=== PATIENT | male | born 1940 | race Caucasian/White ===

== ENCOUNTER 2019-09-24 07:46 | Inpatient (IN) | payer MEDICARE ==
[2019-09-24] MEDS ORDERED: PROPOFOL 1,000 MG/100 ML INFUS..BTL IV PRN ×2 (08:04→08:12)
--- NOTE | 2019-09-24 08:04 | ER Document Report ---
Entered by ANTONINA SHAW SCRIBE 09/24/19 0747 Acting as scribe for:BREEZY GUTIERREZ MD ED Neuro Symptoms/Deficit - General Stated Complaint: UNRESPONSIVE Mode of Arrival: Medic Information source: Emergency Med Personnel Cannot obtain history due to: Intubated Notes: This 79 year old male patient visiting this area on vacation presents today intubated in the field by EMS. EMS reports that the patient woke up at 1:00 AM this morning and vomited but then went back to sleep. He woke up again at 5:00 AM with left sided weakness, left sided facial droop, and slurred speech. Patient had an initial systolic pressure over 200. Patient takes medication for type II diabetes, dementia, and BPH. He has no history of hypertension. 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 HEAD: Atraumatic, normocephalic. EYES: Pupils are small and sluggishly reactive. ENT: nares patent. NECK: Patient has a hard cervical collar on. LUNGS: Breath sounds show some rhonchi with bagging via endotracheal tube. HEART: Regular rate and rhythm without murmurs ABDOMEN: Soft, obese. No guarding, no rebound. No masses appreciated. EXTREMITIES: No pitting or edema. No cyanosis. There is an IO in the right anterior tibial surface. NEUROLOGICAL: The patient is obtunded. There is no spontaneous movement noted on the left side. Stroking the bottom of the feet because the large toes to go upward, with brisk jerking and withdrawal on the right, and minimal movement on the left. PSYCH: Obtunded SKIN: Warm, Dry, normal turgor, no rashes or lesions noted. Course - Re-evaluation Re-evalutation: 09/24/19 10:35 CT scan of the head showed massive right intracerebral bleed with midline shift, extension into the ventricles including third and fourth ventricle and basilar cisterns. Considerable edema. The patient was placed on a propofol drip to treat his elevated blood pressure and for sedation. Phone call was made to [facility] for consultation with neurology or neurosurgery just for confirmation that this is not a survivable injury and that intervention would not be appropriate. While waiting for the return call, I did discuss the case with the hospitalist service here, the head charrer here, and with the family. The understands the severity of the brain injury, and agrees with the de cision to extubate the patient and provide comfort care. She was present during the extubation. Long after the patient was extubated, I did get a call back from the [place] for the neurosurgeon emission specialist, he had reviewed the films and agreed that there was no intervention to provide and that this was a nonsurvivable injury. 09/24/19 16:09 I was called in to see the patient about 1525. His monitor had gone flatline and he was apneic. Reevaluation showed the patient was in fact apneic, pupils were dilating, and the monitor was flatline. He was pronounced at 1530. - Laboratory Result Diagrams: 09/24/19 06:50 09/24/19 06:50 - Diagnostic Test Radiology reviewed: Reports reviewed - CT scan of the head shows a large right- sided cerebral hemorrhage. The primary bleed measures 7.6 x 5.0 cm. Most likely represents a hypertensive hemorrhagic stroke. Cortical sulci are effaced bilaterally, consistent with diffuse bilateral edema. Basilar cisterns are effaced. There is blood in the third and fourth ventricles. - EKG Interpretation by Me EKG shows normal: Sinus rhythm, [place], Intervals, QRS Complexes. abnormal: ST-T Waves - Borderline TM abnormalities in the inferior leads Rate: Normal - 64 Rhythm: NSR When compared to previous EKG there are: Previous EKG unavailable - Consults Dr. Ramirez Time consulted: 08:37 Consulted provider: will come to ER - Medical floor. comfort care. Critical Care Note - Critical Care Note Total time excluding time spent on procedures (mins): 40 Comments: At least 40 minutes spent evaluating the patient, discussing the case with the hospitalist, the head charrer, the radiologist, and the neurosurgical group in [facility]. Time was spent talking with the family about the severity and likely progression and prognosis of this catastrophic injury. With the family present, the patient was extubated and transferred to comfort care. ED [employer]/Exc Criteria - Inclusion Criteria: 1: Patient presented to ED within 3 hours of acute ischemic stroke symptom onset? -: No - Became symptomatic at 1 AM, woke up at 5 AM with profound left-sided defici 2: Did baseline CT exclude intracranial hemorrhage and/or other risk factors? -: No 3: Is the age of the patient 18 years of age or greater? : If any of the above questions are answered "NO" then stop, patient is not a candidate for Alteplase, : If all of the above questions are answered "YES" then continue with Exclusion Criteria. - Exclusion Criteria: 1: Is there evidence of intracranial hemorrhage on baseline CT? 2: Is there suspicion of subarachnoid hemorrhage (even if CT negative)? 3: Is there a history of serious head trauma, recent previous stroke or AZ within 3 months? 4: Does the patient have a clinical presentation consistent with AZ or post-AZ pericarditis? 5: Is there history of intracranial hemorrhage? 6: On repeated measurement is Systolic BP greater than 185mmHg or Diastolic BP greater that 110 mmHg and is aggressive treatment needed to reduce blood pressure to these limits (e.g. constant infusion of an anti-hypertensive)? 7: Did the patient awake with stroke symptoms? 8: Has the patient had a lumbar puncture or an arterial puncture at a non- compressile site within 7 days? 9: With in the last 14 days did the patient have surgery or major trauma? 10: Is the patient or less than 2 weeks? 11: Was there any active bleeding or acute trauma? 12: Does the patient have intracranial neoplasm, arteriovenous malformation or aneurysm? 13: Does the patient have abnormal glucose (less than 50 or greater than 400mg/dl)? Record glucose in Comment. 14: Patient has rapidly improving symptoms at the time Alteplase is to be Administered. 15: Does the patient have any risks for bleeding, including but not limited to: a.: Current use of Coumadin with PT greater than 15 seconds or INR greater than 1.7. b.: Current use of Pradaxa (Dabigatran). c.: Heparin administereed within the past 48 hours and PTT elevated. d.: Platelet count less than 100,000/mm. e.: Major surgery or serious trauma within 14 days. f.: Gastrointestinal or gynecological urinary bleeding within 14 days. g.: Myocardial Infarction (AZ) within 3 months. : If the answer to any of the above questions is "YES" then stop, the patient is not a candidate for Alteplase. : If the answer to all of the above questions is "NO" then the patient may be eligible for the Administration of Alteplase. : If the patient is noted to have seizure activity at onset of Stroke symptoms; Consult Neurologist for further evaluation. - The patient is: -: Included and is eligible to receive Alteplase. *Initiate bed placement at higher level of care* Reviewed risks & benefits of thrombolytic therapy: I have reviewed the risks and benefits of thrombolytic therapy with the patient and/or his/her family. -: Excluded and not eligible to receive Alteplase for the above exclusions. -: Excluded and not eligible to receive Alteplase for other reasons (specify in comments): - Diagnosis of TIA: -: Patient presented with transient symptoms that are now resolved and no other neurologic findings are currently present. List symptoms in comments. -: Patient is NOT a candidate for tPA. -: ____(put name in comment) has been consulted for admission and continued evaluation of risk factor assessment. Discharge - Discharge Clinical Impression: Intracerebral hemorrhage Qualifiers: Intracerebral hemorrhage etiology: nontraumatic Cerebral hemorrhage location: cerebral hemisphere, unspecified portion Laterality: right Qualified Code(s): I61.2 - Nontraumatic intracerebral hemorrhage in hemisphere, unspecified Condition: Poor Disposition: ADMITTED INPATIENT Admitting Provider: Ashley (Hospitalist) Unit Admitted: Medical Floor I personally performed the services described in the documentation, reviewed and edited the documentation which was dictated to the scribe in my presence, and it accurately records my words and actions.
[2019-09-24] MEDS ORDERED: PROPOFOL INJ 200 MG/20 ML VIAL IV ONE ×4 (08:13→08:27)
[2019-09-24 08:15] LABS: ABSOLUTE MONOCYTES (AUTO) 0.6 10^3/uL (0.1-1.4); BASOPHILS % (AUTO) 0.3 % (0-2); EOSINOPHILS % (AUTO) 0.2 % (0-6); HEMATOCRIT 41.8 % (37.9-51.0); HEMOGLOBIN 14.1 g/dL (13.5-17.0); INTERNATIONAL RATION (INR) 0.98; LYMPHOCYTES % (AUTO) 8.6 % (13-45); MEAN CORPUSCULAR HEMOGLOBIN 31.1 pg (27.0-33.4); MEAN CORPUSCULAR HGB CONC 33.8 g/dL (32.0-36.0); MEAN CORPUSCULAR VOLUME 92 fl (80-97); MONOCYTES % (AUTO) 4.9 % (3-13); PARTIAL THROMBOPLASTIN TIME 34.6 SEC (23.5-35.8); PLATELET COUNT 172 10^3/uL (150-450); PROTHROMBIN TIME 13.1 SEC (11.4-15.4); RED BLOOD COUNT 4.53 10^6/uL (4.35-5.55); RED CELL DISTRIBUTION WIDTH 13.5 % (11.5-14.0); TOTAL CELLS COUNTED % (AUTO) 100 %; WHITE BLOOD COUNT 11.6 10^3/uL (4.0-10.5)
--- NOTE | 2019-09-24 08:15 | RADIOLOGY REPORT (SQ) ---
EXAM DESCRIPTION: CT HEAD WITHOUT IMAGES COMPLETED DATE/TIME: 09/24/2019 8:00 am REASON FOR STUDY: bed 8 stroke alert COMPARISON: None. TECHNIQUE: Axial images acquired through the brain without intravenous contrast. Images reviewed wi th bone, brain and subdural windows. Additional sagittal and coronal reconstructions were generated. Images stored on PACS. All CT scanners at this facility use dose modulation, iterative reconstruction, and/or weight based d osing when appropriate to reduce radiation dose to as low as reasonably achievable (ALARA). [facility]: Dose Right [facility]: CareDose [facility]: Dose Right [facility]: Teradose 4D [facility]: [employer] RADIATION DOSE: CT Rad equipment meets quality standard of care and radiation dose reduction techniq ues were employed. CTDIvol: 53.2 mGy. DLP: 1097 mGy-cm. mGy. LIMITATIONS: None. FINDINGS: VENTRICLES: There is intraventricular hemorrhage. The lateral ventricles are significantl y displaced to the left with effacement of the right and left lateral ventricle secondary to edema. CEREBRUM: Large right-sided cerebral hemorrhage primary bleed measures 7.6 x 5.0 cm. This most likel y represent a hypertensive hemorrhagic stroke. Cortical sulci are effaced bilaterally consistent with diffuse bilateral edema. CEREBELLUM: Basilar cisterns are face. There is blood in the 3rd and 4th ventricle. EXTRAAXIAL SPACES: Effaced due to cerebral edema. ORBITS AND GLOBE: No intra- or extraconal masses. Normal contour of globe without masses. CALVARIUM: No fracture. PARANASAL SINUSES: Right maxillary mucosal thickening. SOFT TISSUES: No mass or hematoma. OTHER: No other significant finding. IMPRESSION: Large right-sided cerebral hemorrhage with extension into the ventricles. Extensive cer ebral edema with effacement of cortical sulci bilaterally. There is approximately 15 mm of midline s hift right to left. Basilar cisterns are effaced. EVIDENCE OF ACUTE STROKE: YES. COMMENT: Pertinent positive or negative findings of the imaging study reported as a CRITICAL EXAM dakota GUTIERREZ MD at08:04 on 09/24/2019. Category of Critical Exam: Stroke alert Quality ID # [id number]: Final reports with documentation of one or more dose reduction techniques (e.g., Au tomated exposure control, adjustment of the mA and/or kV according to patient size, use of iterative reconstruction technique) TECHNICAL DOCUMENTATION: JOB ID: [id number] [employer]- All Rights Reserved Reading location - IP/workstation name: [email or web address]
--- NOTE | 2019-09-24 08:16 | RADIOLOGY REPORT (SQ) ---
EXAM DESCRIPTION: CHEST SINGLE VIEW IMAGES COMPLETED DATE/TIME: 09/24/2019 8:04 am REASON FOR STUDY: bed 8 stroke alert COMPARISON: None. EXAM PARAMETERS: NUMBER OF VIEWS: One view. TECHNIQUE: Single frontal radiographic view of the chest acquired. RADIATION DOSE: NA LIMITATIONS: None. FINDINGS: LUNGS AND PLEURA: Endotracheal tubes in place. Tip lies 2.4 cm above the vivek. There i s linear atelectasis in the right midlung field. There is left retrocardiac airspace disease either atelectasis or pneumonia. Probable small left effusion. No pneumothorax. MEDIASTINUM AND HILAR STRUCTURES: No masses. Contour normal. HEART AND VASCULAR STRUCTURES: Heart normal in size. Normal vasculature. BONES: No acute findings. HARDWARE: None in the chest. OTHER: No other significant finding. IMPRESSION: Endotracheal tubes in satisfactory position. Left retrocardiac airspace disease possibl y atelectasis or pneumonia. Small left effusion. Minimal linear atelectasis in the right midlung fi eld. TECHNICAL DOCUMENTATION: JOB ID: [id number] [employer]- All Rights Reserved Reading location - IP/workstation name: [email or web address]
--- NOTE | 2019-09-24 08:18 | RADIOLOGY REPORT (SQ) ---
EXAM DESCRIPTION: CT CERVICAL SPINE WITHOUT IMAGES COMPLETED DATE/TIME: 09/24/2019 8:08 am REASON FOR STUDY: AMS COMPARISON: None. TECHNIQUE: Axial images acquired through the cervical spine without intravenous contrast. Images re viewed with lung, soft tissue and bone windows. Reconstructed coronal and sagittal MPR images review ed. Images stored on PACS. All CT scanners at this facility use dose modulation, iterative reconstruction, and/or weight based d osing when appropriate to reduce radiation dose to as low as reasonably achievable (ALARA). [facility]: Dose Right [facility]: CareDose [facility]: Dose Right [facility]: Teradose 4D [facility]: [employer] RADIATION DOSE: mGy. LIMITATIONS: The study is limited by patient motion. FINDINGS: ALIGNMENT: Anatomic. MINERALIZATION: Normal. VERTEBRAL BODIES: No fractures or dislocation. DISCS: Mild multilevel disc space narrowing and small anterior osteophytes. FACETS, LATERAL MASSES, POSTERIOR ELEMENTS: Facet arthropathy. No fractures. No dislocation. No ac unga findings. HARDWARE: None in the spine. VISUALIZED RIBS: No fractures. LUNG APICES AND SOFT TISSUES: No significant or acute findings. OTHER: Endotracheal tube is in place. IMPRESSION: Limited study due to patient motion. Degenerative changes. TECHNICAL DOCUMENTATION: JOB ID: [id number] Quality ID # [id number]: Final reports with documentation of one or more dose reduction techniques (e.g., Au tomated exposure control, adjustment of the mA and/or kV according to patient size, use of iterative reconstruction technique) 2010 [employer]- All Rights Reserved Reading location - IP/workstation name: [email or web address]
[2019-09-24 08:48] LABS: ALKALINE PHOSPHATASE 89 U/L (38-126); ANION GAP 6 (5-19); ASPARTATE AMINO TRANSFERASE 34 U/L (17-59); BILIRUBIN,DIRECT 0.1 mg/dL (0.0-0.4); BILIRUBIN,TOTAL 0.9 mg/dL (0.2-1.3); BLOOD UREA NITROGEN 32 mg/dL (7-20); CALCIUM 9.3 mg/dL (8.4-10.2); CARBON DIOXIDE 20 mmol/L (22-30); CHLORIDE 110 mmol/L (98-107); CREATINE KINASE 174 U/L (55-170); GLUCOSE 217 mg/dL (75-110); TOTAL PROTEIN 7.6 g/dL (6.3-8.2)
[2019-09-24 09:06] LABS: CREATINE KINASE MB 1.74 ng/mL (<4.55)
[2019-09-24 09:11] LABS: TROPONIN I 0.063 ng/mL
[2019-09-24] MEDS ORDERED: GLUCAGON,HUMAN RECOMB 1 MG INJ SUBCUT PRN (09:49)
[2019-09-24] MEDS ORDERED: DEXTROSE 40% GEL 15 GM TUBE PO PRN ×2 (09:49)
[2019-09-24] MEDS ORDERED: DEXTROSE 50%-WATER 25 GM/50 ML DISP.SYRIN IV PRN ×2 (09:49)
[2019-09-24] MEDS ORDERED: LORAZEPAM INJ 2 MG/1 ML VIAL IV PRN ×2 (09:53→10:01)
[2019-09-24] MEDS ORDERED: HYOSCYAMINE SULFATE 0.125 MG TABLET SL PRN (09:53)
--- NOTE | 2019-09-24 10:17 | PDOC H&P ---
History of Present Illness Admission Date/PCP: 09/24/19 08:55 Patient complains of: Altered mental status History of Present Illness: SANDRA GRIFFITH is a 79 year old male who presented to the hospital via EMS for evaluation of unresponsiveness. Patient is in town visiting family. Earlier today, patient was noted to start vomiting around 1 AM today. He went back to sleep, and woke up later on around 5 AM with left-sided weakness and facial droop. EMS was called. In route to the hospital, patient became more responsive. Patient was intubated in the field. In the ER, head CT was performed which showed a large right cerebral hemorrhage with midline shift and significant cerebral edema. In the ER, discussion was executed with patient's family who have opted to pursue comfort care measures. Patient was palliatively extubated. I have confirmed with patient's , daughter at bedside who have all opted for comfort measures only at this point and fully understand the implications. Past Medical History Endocrine Medical History: Reports: Diabetes Mellitus Type 2 Psychiatric Medical History: Reports: Dementia Past Surgical History Past Surgical History: Reports: None Social History Information Source: Relative - Spouse Lives with: Spouse/Significant other Smoking Status: Unknown if Ever Smoked Frequency of Alcohol Use: None Hx Recreational Drug Use: No - Advance Directive Resuscitation Status: Comfort Measures Only Family History Family History: Reviewed & Not Pertinent Parental Family History Reviewed: Yes Children Family History Reviewed: Unknown Sibling(s) Family History Reviewed.: Yes Review of Systems ROS unobtainable: Due to mental status Physical Exam Vital Signs: Temp Pulse Resp BP Pulse Ox 33 H 193/93 H 89 L 09/24/19 09:46 09/24/19 09:46 09/24/19 09:46 Intake & Output 09/23/19 09/24/19 09/25/19 06:59 06:59 06:59 Intake Total 4 Balance 4 Weight 146.8 kg General appearance: PRESENT: no acute distress, morbidly obese, other - Comatose Head exam: PRESENT: normocephalic Eye exam: ABSENT: conjunctival injection Mouth exam: PRESENT: neck supple Neck exam: ABSENT: JVD Respiratory exam: PRESENT: retraction, symmetrical, tachypnea Cardiovascular exam: PRESENT: +S1, +S2. ABSENT: tachycardia GI/Abdominal exam: PRESENT: soft. ABSENT: rebound, rigid, tenderness Extremities exam: ABSENT: pedal edema Neurological exam: PRESENT: altered - Comatose Psychiatric exam: ABSENT: agitated, anxious Focused psych exam: ABSENT: restlessness Skin exam: ABSENT: jaundice Results Laboratory Results: 09/24/19 06:50 09/24/19 06:50 09/24/19 09/24/19 06:50 06:50 WBC 11.6 H RBC 4.53 Hgb 14.1 Hct 41.8 MCV 92 MCH 31.1 MCHC 33.8 RDW 13.5 Plt Count 172 Seg Neutrophils % 86.0 H Sodium 135.5 L Potassium 5.0 Chloride 110 H Carbon Dioxide 20 L Anion Gap 6 BUN 32 H Creatinine 2.23 H Est GFR ( Amer) 35 L Glucose 217 H Calcium 9.3 Total Bilirubin 0.9 AST 34 Alkaline Phosphatase 89 Total Protein 7.6 Albumin 4.0 09/24/19 09/24/19 06:50 06:50 Creatine Kinase 174 H CK-MB (CK-2) 1.74 Troponin I 0.063 Impressions: Cervical Spine CT 09/24/19 00:00 IMPRESSION: Limited study due to patient motion. Degenerative changes. Chest X-Ray 09/24/19 07:47 IMPRESSION: Endotracheal tubes in satisfactory position. Left retrocardiac airspace disease possibly atelectasis or pneumonia. Small left effusion. Minimal linear atelectasis in the right midlung field. Head CT 09/24/19 07:47 IMPRESSION: Large right-sided cerebral hemorrhage with extension into the ventricles. Extensive cerebral edema with effacement of cortical sulci bilaterally. There is approximately 15 mm of midline shift right to left. Basilar cisterns are effaced. EVIDENCE OF ACUTE STROKE: YES. Assessment and Plan - Diagnosis (1) Intracerebral hemorrhage Qualifiers: Intracerebral hemorrhage etiology: nontraumatic Cerebral hemorrhage location: cerebral hemisphere, unspecified portion Laterality: right Qualified Code(s): I61.2 - Nontraumatic intracerebral hemorrhage in hemisphere, unspecified Is this a current diagnosis for this admission?: Yes (2) Coma Is this a current diagnosis for this admission?: Yes (3) Comfort measures only status Is this a current diagnosis for this admission?: Yes - Plan Summary Summary: Head CT has been reviewed which shows very large right-sided cerebral hemorrhage with midline shift and significant cerebral edema. Patient is very much at risk of herniation and will likely pass soon Family has confirmed DNR/DNI and comfort measures only status. They are grateful for the care they have received and are certain that is what he would want. IV morphine as needed for work of breathing/pain IV Ativan as needed for agitation/anxiety Levsin scopolamine for secretions. Family at bedside. - Time Time Spent with patient: 25-34 minutes Anticipated Discharge Disposition: IMMINENT Anticipated Discharge Timeframe: within 48 hours
[2019-09-24] MEDS ORDERED: SCOPOLAMINE HYDROBROMIDE 1.5 MG PATCH.TD72 TD SCH (11:00)
--- NOTE | 2019-09-24 12:22 | PDOC CRITICAL CARE PROG REPORT ---
General Date:: 09/24/19 Hospital Day:: 1 Resuscitation Status: Do Not Resuscitate Events in the past 12 to 24 Hours:: Intracerebral bleed. Review of systems relevant to events:: Neurological Reason for ICU Addmission:: Evaluation - Medications: Medications reviewed and adjusted accordingly: Yes Vasopressors:: None Sedation:: Diprivan Physical Exam Vital Signs: Temp Pulse Resp BP Pulse Ox 29 H 184/79 H 96 09/24/19 10:31 09/24/19 10:31 09/24/19 10:31 Intake & Output 09/23/19 09/24/19 09/25/19 06:59 06:59 06:59 Intake Total 4 Balance 4 Weight 146.8 kg Weight/Height Weight 146.8 kg General appearance: PRESENT: no acute distress Head exam: PRESENT: atraumatic, normocephalic Eye exam: PRESENT: conjunctiva pink, EOMI, other - Pupils pinpoint. ABSENT: scleral icterus Ear exam: PRESENT: normal external ear exam Mouth exam: PRESENT: moist, tongue midline Respiratory exam: PRESENT: clear to auscultation lorraine. ABSENT: rales, rhonchi, wheezes Cardiovascular exam: PRESENT: RRR. ABSENT: diastolic murmur, rubs, systolic murmur GI/Abdominal exam: PRESENT: normal bowel sounds, soft. ABSENT: distended, guarding, mass, organolmegaly, rebound, tenderness Rectal exam: PRESENT: deferred Gentrourinary exam: PRESENT: indwelling catheter Extremities exam: PRESENT: full ROM. ABSENT: calf tenderness, clubbing, pedal edema Musculoskeletal exam: PRESENT: normal inspection Neurological exam: PRESENT: other - He is moving all 4 extremities. R much more than L. No posturing, decerebrate or decorticate. Not responding appropriately. Skin exam: PRESENT: dry, intact, warm. ABSENT: cyanosis, rash Tubes/Lines: PRESENT: Endotracheal Tube Laboratory/Radiographs Laboratory Results: 09/24/19 06:50 09/24/19 06:50 09/24/19 09/24/19 06:50 06:50 WBC 11.6 H RBC 4.53 Hgb 14.1 Hct 41.8 MCV 92 MCH 31.1 MCHC 33.8 RDW 13.5 Plt Count 172 Seg Neutrophils % 86.0 H Sodium 135.5 L Potassium 5.0 Chloride 110 H Carbon Dioxide 20 L Anion Gap 6 BUN 32 H Creatinine 2.23 H Est GFR ( Amer) 35 L Glucose 217 H Calcium 9.3 Total Bilirubin 0.9 AST 34 Alkaline Phosphatase 89 Total Protein 7.6 Albumin 4.0 09/24/19 09/24/19 06:50 06:50 Creatine Kinase 174 H CK-MB (CK-2) 1.74 Troponin I 0.063 Impressions: Cervical Spine CT 09/24/19 00:00 IMPRESSION: Limited study due to patient motion. Degenerative changes. Chest X-Ray 09/24/19 07:47 IMPRESSION: Endotracheal tubes in satisfactory position. Left retrocardiac airspace disease possibly atelectasis or pneumonia. Small left effusion. Minimal linear atelectasis in the right midlung field. Head CT 09/24/19 07:47 IMPRESSION: Large right-sided cerebral hemorrhage with extension into the ventricles. Extensive cerebral edema with effacement of cortical sulci bilaterally. There is approximately 15 mm of midline shift right to left. Basilar cisterns are effaced. EVIDENCE OF ACUTE STROKE: YES. EKG: NSR All labs, radiographs, diagnostic studies and EKGs were personally reviewed: Yes In addition, reports of radiographic and diagnostic studies were read: Yes Assessment and Plan - Diagnosis (1) Intracerebral hemorrhage Qualifiers: Intracerebral hemorrhage etiology: nontraumatic Cerebral hemorrhage location: cerebral hemisphere, unspecified portion Laterality: right Qualified Code(s): I61.2 - Nontraumatic intracerebral hemorrhage in hemisphere, unspecified Is this a current diagnosis for this admission?: Yes Plan: This hemmorrhage is R sided, large with cerebral sulci invovement indicating swelling. In a 79 yo demented man this is significant. There is blood in 3rd and 4th ventricles indicating impending hydrocephalus. He would need emergant neurosurgical intervention and a COT[employer] DISP[employer]ER shunt. Even with this at his age and baseline demetia the chances of a good functional recovery are slim. Neurosurgery apparently has agreed. (2) Comfort measures only status Is this a current diagnosis for this admission?: Yes Plan: Give his overall statistical chances, pursuing comfort care is quite reasonable. (3) HTN (hypertension) Qualifiers: Hypertension type: essential hypertension Qualified Code(s): I10 - Ess ential (primary) hypertension Is this a current diagnosis for this admission?: Yes Plan: He is currently hypertensive probably from the bleeding. This was present before and likely led to the bleeding. The most common location is basal ganglia which was likely the source. Plan Summary: The patient will be extubated and on comfort care. No ICU is planned. Critical Time Critical Time (minutes): 40 Level of Care: MEDICAL Anticipated discharge: Hospice Anticipated DC Timeframe: Other -: 1. The care of a critical patient is a dynamic process. This note is a account service representative synopsis but static in nature. The timeframe for treatments given in order is not necessarily the actual time these treatments may have been done. 2. This patient requires critical care secondary to ongoing requirements for therapy not offered or safe outside the critical care environment. Transfer to a lower level of care will result in altered life or limb morbidity and mortality. 3. Multidisciplinary rounds completed. 4. ABCDE bundle addressed.
--- NOTE | 2019-09-24 12:22 | EKG REPORT ---
SEVERITY:- BORDERLINE ECG - SINUS RHYTHM BORDERLINE T ABNORMALITIES, INFERIOR LEADS : Confirmed by: Jason Ortiz MD 24-Sep-2019 12:21:18
[2019-09-24] MEDS: MORPHINE SULFATE 10 MG/ML INJ IV PRN ×2 (14:08→15:06)
[2019-09-24 15:49] VITALS: BP 175/91
--- NOTE | 2019-09-24 16:37 | Death Summary ---
Summary Date : 09/24/19 Time of :: 15:30 Autopsy: No Resuscitation Status: Comfort Measures Only - Final Diagnosis (1) Intracerebral hemorrhage Is this a current diagnosis for this admission?: Yes (2) Coma Is this a current diagnosis for this admission?: Yes (3) Comfort measures only status Is this a current diagnosis for this admission?: Yes Hospital Course:: History of Present Illness: SANDRA GRIFFITH is a 79 year old male who presented to the hospital via EMS for evaluation of unresponsiveness. Patient is in town visiting family. Earlier today, patient was noted to start vomiting around 1 AM today. He went back to sleep, and woke up later on around 5 AM with left-sided weakness and facial droop. EMS was called. In route to the hospital, patient became more responsive. Patient was intubated in the field. In the ER, head CT was performed which showed a large right cerebral hemorrhage with midline shift and significant cerebral edema. In the ER, discussion was executed with patient's family who have opted to pursue comfort care measures. Patient was palliatively extubated. I have confirmed with patient's , daughter at bedside who have all opted for comfort measures only at this point and fully understand the implications. Hospital course/plan Head CT has been reviewed which shows very large right-sided cerebral hemorrhage with midline shift and significant cerebral edema. Patient is very much at risk of herniation and will likely pass soon Family has confirmed DNR/DNI and comfort measures only status. They are grateful for the care they have received and are certain that is what he would want. IV morphine as needed for work of breathing/pain IV Ativan as needed for agitation/anxiety Levsin scopolamine for secretions. Family at bedside. Patient at 1530 p.m. Family said their goodbyes. I have signed certificate.
== END 2019-09-24 15:27 | disposition left against medical advice (07) | DRG 65 ==
LOC: ER 07:46 → EH 08:55
PROVIDERS: ADMIT Internal Medicine; ATTEND Hospitalist
PROC: 5A1935Z Respiratory Ventilation, Less than 24 Consecutive Hours (ICD-10-PCS; principal; 2019-09-24)
DX: I61.2 Nontraumatic intracerebral hemorrhage in hemisphere, unspecified (principal); G81.91 Hemiplegia, unspecified affecting right dominant side; Z51.5 Encounter for palliative care; Z66 Do not resuscitate; R29.810 Facial weakness; E11.9 Type 2 diabetes mellitus without complications; F03.90 Unspecified dementia, unspecified severity, without behavioral disturbance, psychotic disturbance, mood disturbance, and anxiety; E66.01 Morbid (severe) obesity due to excess calories; R40.20 Unspecified coma; N40.0 Benign prostatic hyperplasia without lower urinary tract symptoms
CPT/HCPCS: 36415; 70450; 71045; 72125; 80053; 82550; 82553; 84484; 85025; 85610; 85730; 93005; 93010; 94002; 99291; J2060; J2270; J2704